=== PATIENT | male | born 1950 | race Caucasian/White ===

== ENCOUNTER 2018-09-06 08:43 | Outpatient (CLI) | payer MEDICARE, SELFPAY ==
[2018-09-06 09:24] LABS: HCT 43.5 % (40.0-50.0); HGB 14.3 g/dL (13.5-17.5); Mean Corp. HGB Concentration 32.9 g/dL (32.0-36.0); Mean Corpuscular Hemoglobin 29.6 pg (27.0-33.0); Mean Corpuscular Volume 90.1 fL (80-95); Mean Platelet Volume 10.1 fL (8.0-11.0); Platelet Count 257 x1000/uL (130-400); RBC 4.83 m/cumm (4.50-6.00); RBC Distribution Width 13.6 % (11.8-14.1); White Blood Cell Count 6.65 k/cumm (4.4-10.8)
[2018-09-06 10:03] LABS: ALT 26 U/L (12-78); AST 22 U/L (15-37); Albumin 3.8 g/dL (3.4-5.0); Alkaline Phosphatase 92 U/L (46-116); Anion Gap 5.7 mmol/L (3-11); BUN 19 mg/dL (7-18); Bilirubin, Total 0.3 mg/dL (0.2-1.0); CO2 30.3 mmol/L (21.0-32.0); CREATININE 0.97 mg/dL (0.70-1.30); Calcium 9.5 mg/dL (8.5-10.1); Chloride 105 mmol/L (98-107); Cholesterol 183 mg/dL (50-200); Glucose 109 mg/dL (70-100); HDL Cholesterol 60 mg/dL (40-60); LDL CHOLESTEROL 103 mg/dL (<100); Potassium 5.4 mmol/L (3.5-5.1); Sodium 141 mmol/L (136-145); Total Protein 7.4 g/dL (6.4-8.2); Triglyceride 75 mg/dL (30-150)
[2018-09-06 11:55] LABS: Hemoglobin A1C 5.9 % (4.5-6.2)
== END 2018-09-06 09:03 ==
PROVIDERS: PCP Nurse Practitioner; Visit Provider Nurse Practitioner
DX: E78.5 Hyperlipidemia, unspecified (principal); R73.01 Impaired fasting glucose; F32.9 Major depressive disorder, single episode, unspecified; F90.9 Attention-deficit hyperactivity disorder, unspecified type; N40.0 Benign prostatic hyperplasia without lower urinary tract symptoms
CPT/HCPCS: 36415; 80053; 80061; 83721; 85027; 83036

== ENCOUNTER 2024-02-17 21:42 | Emergency (ER) | payer MEDICARE, SELFPAY ==
[2024-02-17 21:45] VITALS: BP 196/118; PULSE 105; RESP 18; TEMP 36.2; O2SAT 96
--- NOTE | 2024-02-17 22:32 | W.ED.GENAD ---
Discharge Plan Disposition Patient Disposition: Home Condition: Good Discharge Details Clinical Impression: FB anus/rectum Primary Care Provider: Kimmy Macario ED Provider: Sweetie Carlos Home Meds and New Rx's Prescriptions: Continued dextroamphetamine-amphetamine 30 mg tablet 30 mg PO TID MDD 90mg Qty: 90 0RF dextroamphetamine-amphetamine [Adderall] 30 mg tablet 30 mg PO TID MDD 90mg Qty: 90 0RF dextroamphetamine-amphetamine 30 mg tablet 30 mg PO TID MDD 90mg Qty: 90 0RF acetaminophen 500 mg tablet 1,000 mg PO Q6H PRN ibuprofen 800 mg tablet 800 mg PO TID PRN (Reason: pain) Qty: 180 4RF simvastatin 40 mg tablet See Rx Instructions .ROUTE .COMPLEX Qty: 90 3RF Dose Instruction: TAKE ONE TABLET BY MOUTH ONCE DAILY Rx Instructions: TAKE ONE TABLET BY MOUTH ONCE DAILY estradiol 0.1 mg/24 hr patch semiweekly 1 patch transdermal .2x/week Patient Comments: 01/19/24 visit Rx Instructions: take together with 0.05mg patch for 0.15mg 2x/week total estradiol 0.05 mg/24 hr patch semiweekly 1 patch transdermal .2x/week Patient Comments: 01/19/24 visit at Rx Instructions: take together with 0.1mg patch for 0.15.g x 2 weeks total Discharge Instructions Instructions: Rectal Foreign Body Removal ED Additional Instructions: Look for toys with a larger base. You can take tylenol and ibuprofen over the counter for any soreness. If you have any severe rectal pain or bleeding, bowel incontinence, or inability to have a bowel movement, please followup with your PCP or return to the ED. Referrals: Kimmy Macario, GABE [Primary Care Provider] - [facility] General Mode of arrival: ambulatory. Date/Time Provider Initiated Documentation: 02/17/24 22:04. Limitations to Documentation: no limitations. Information obtained by: patient. HPI Narrative: 73yo MTF transgendered individual presenting for rectal foreign body. Was engaging in consensual sexual activity with their girlfriend, butt plug (plastic, flared base) slipped in to far and go stuck about 20 minutes ago. Pt has tried removing it without success; can grab the edge but it was too slippery. No rectal pain or bleeding. Otherwise in their usual state of health. Related Data Home Medications Medication Instructions Recorded Confirmed acetaminophen 500 mg tablet 1,000 mg PO Q6H PRN 01/23/20 02/17/24 ibuprofen 800 mg tablet 800 mg PO TID PRN pain #180 tabs 07/17/22 02/17/24 simvastatin 40 mg tablet See Rx Instructions .Route 11/18/23 02/17/24 .COMPLEX #90 tabs dextroamphetamine-amphetamine 30 30 mg PO TID #90 tabs 12/15/23 02/17/24 mg tablet dextroamphetamine-amphetamine 30 30 mg PO TID #90 tabs 12/15/23 02/17/24 mg tablet dextroamphetamine-amphetamine 30 30 mg PO TID #90 tabs 12/15/23 02/17/24 mg tablet (Adderall) estradiol 0.05 mg/24 hr semiweekly 1 patch transdermal .2x/week 01/19/24 02/17/24 transdermal patch estradiol 0.1 mg/24 hr semiweekly 1 patch transdermal .2x/week 01/19/24 02/17/24 transdermal patch Previous Rx's Medication Instructions Recorded ibuprofen 800 mg tablet 800 mg PO TID PRN pain #180 tabs 07/17/22 simvastatin 40 mg tablet See Rx Instructions .Route 11/18/23 .COMPLEX #90 tabs dextroamphetamine-amphetamine 30 30 mg PO TID #90 tabs 12/15/23 mg tablet dextroamphetamine-amphetamine 30 30 mg PO TID #90 tabs 12/15/23 mg tablet dextroamphetamine-amphetamine 30 30 mg PO TID #90 tabs 12/15/23 mg tablet (Adderall) Allergies Allergy/AdvReac Type Severity Reaction Status Date / Time Sulfa (Sulfonamide Allergy Unknown Unknown Verified 02/17/24 21:48 Antibiotics) atorvastatin AdvReac Unknown muscle Verified 02/17/24 21:48 cramps Shellfish containing products Allergy Unknown Anaphylaxis Uncoded 02/17/24 21:48 General Stated Complaint: ForeignBody ANYI: 3 Review of Systems Narrative: see HPI Exam Narrative Exam Narrative: General: Alert, well appearing, well nourished, in no acute distress. Head: Normocephalic, atraumatic Neck: Trachea midline, ?Neck supple. Cardiac: ?No cyanosis. Well perfused. Resp: No respiratory distress. Speaking in full sentences.. Abd: ?Soft, non-distended, nontender Rectal: Normal external exam. Good rectal tone. Palpable rectal foreign body consisted with plastic toy. Black plastic object visualized with anoscope. No bleeding. Extremities: ?No deformities.? No peripheral edema. Neurologic: GCS 15. ? Moves all extremities freely against gravity Course Vital Signs Vital signs: Vital Signs Temperature 36.2 C L 02/17/24 21:45 Pulse 105 H 02/17/24 21:45 Respiratory Rate 18 02/17/24 21:45 Blood Pressure 196/118 H 02/17/24 21:45 Pulse Oximetry 96 02/17/24 21:45 Temperature 36.2 C L 02/17/24 21:45 Temperature Source Skin 02/17/24 21:45 Pulse 105 H 02/17/24 21:45 Respiratory Rate 18 02/17/24 21:45 Respiratory Effort Normal 02/17/24 22:29 Respiratory Pattern Normal 02/17/24 22:29 Blood Pressure 196/118 H 02/17/24 21:45 Blood Pressure Position Sitting 02/17/24 21:45 Pulse Oximetry 96 02/17/24 21:45 Oxygen Delivery Method Room Air 02/17/24 21:45 Oxygen Flow Rate 0 02/17/24 21:45 Pain Level 0 02/17/24 22:30 Procedures Foreign Body Removal Time Out Performed: yes Site: rectum Description of foreign body: toy Sedation/Analgesia: none Technique: manual removal and lopez balloon Confirmed by:: direct visualization, patient report and palpation Complications: none Post-procedure exam: awake, alert Neurovascular: no change from pre-procedure Medical Decision Making 73yo MTF transgendered individual presenting for rectal foreign body. Was engaging in consensual sexual activity with their girlfriend, butt plug (plastic, flared base) slipped in to far and go stuck about 20 minutes [employer]. No pain, bleeding, or numbness. Hypertensive and slightly tachycardiac in triage, suspect 2/t situation. Reliable historian. Would not get CT imaging at this time. Rectal exam with good tone, no bleeding. Palpable smooth foreign body unable to removed on initial manual attempt, visualized with anoscope and confirmed black plastic object. Two lopez catheters inserted past object, balloons inflated, and object removed manually with accompanying lopez traction. Plastic butt plug with flared based. Initial removal (and pt attempts) likely unsuccessful as object had rotated internally with base not proximal on my initial exam; ultimately was removed in standard orientation with base first. Tolerated removal well with mild discomfort. Advised toys with wider base in the future. Discharged home; discharge instructions and return precautions were reviewed with patient who verbalized understanding. All questions were answered and they are in full agreement with the plan. Quality:SDOH Health Related Social Needs: Health related social needs risk of homeless PFSH All Active Problems (Updated 02/17/24 @ 22:49 by Sweetie Carlos MD) FB anus/rectum (Acute) Rotator cuff arthropathy of right shoulder (Acute 07/22/23) Ortho [facility] xray 07/22/23. mild to moderate glenohumeral joint osteoarthopathy with concentirc gleniod wear. Mild acromioclavicular osteoarthropathy. Shoulder arthritis (Acute 07/22/23) Ortho Melanoma of back (Acute) [facility] Derm Note 05/07/23 Neoplasm of unspecified behavior of bone, soft tissue, and skin (Acute) 04/07/23 Shave Bx done Gender dysphoria (Acute) 07/29/22 Endocrinology Telangiectasia (Acute) 03/25/22 tip of nose per [facility] derm Leung angioma (Acute) Seborrheic keratoses (Acute) Failure to attend screening for abdominal aortic aneurysm (AAA) (Acute) Depressive disorder (Chronic 09/05/14) [id number] transgender person (Acute) Colonoscopy refused (Acute) Malignant neoplasm of prostate (Chronic) 09/14/19-[facility]. Tiffanie Wood MD per note, pt would like to be referred to [facility] urology to further discuss surgical options. 02/07/21 F/u Urology/Oncology - f/u 6months and PSA Elevated PSA (Acute) 09/14/19-[facility]. MD Celestino Active advance directive (Acute 06/09/16) Brother, Singh Warren has his AD and DPOA [phone] Attention deficit disorder with hyperactivity (Acute 09/05/14) Benign localized prostatic hyperplasia without lower urinary tract symptoms (LUTS) (Acute 09/05/14) Hyperlipidemia (Acute 09/05/14) Medical History (Updated 02/17/24 @ 22:49 by Sweetie Carlos MD) Multiple nevi 12/31/23 F/u with Derm and Skin screening done for Cancer Inflamed seborrheic keratosis Derm - LN x2 to scalp Dermatofibroma left knee per [facility] derm 03/25/22 Urinary frequency Mild cataracts ADHD (attention deficit hyperactivity disorder) Melanoma (~2004) L arm BPH (benign prostatic hyperplasia) Depression Controlled with medication Controlled anxiety Arthralgias/Joint pain Shoulder aches from old rotator cuff injuries Surgical History (Updated 01/27/20 @ 16:37 by Payton Nicholas RN) Hx of bilateral orchiectomies (~01/19/20) M>F transgender History of robot-assisted laparoscopic radical prostatectomy (01/19/20) with peritoneal lymph note dissection Malignant melonoma, left arm Colonoscopy - IV Sedation (08/10/09) No polyps found Biopsy, Soft Tissue (06/06/16) Dr Lau-[facility] Lesion R neck Family History Mother Idiopathic interstitial pneumonia Heart disease COPD (chronic obstructive pulmonary disease) Father Alcoholism Cancer Colon, Bladder & Lung Daughter Depression Other Personal history of malignant neoplasm Social History (Updated 09/27/19 @ 08:39 by Regine Mayer RN, RN) Smoking/Tobacco Use Status: Never Second Hand Exposure: No Smoking risk assessment performed?: Yes Alcohol Intake: current Alcohol Intake frequency: a few times a month Drug use: Never Substance use type: does not use Household members: none Housing: house Number of Children: 1 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
== END 2024-02-17 22:57 | disposition home or self-care (01) ==
PROVIDERS: Emergency Provider Student in an Organized Health Care Education/Training Program; PCP Nurse Practitioner
DX: T18.5XXA Foreign body in anus and rectum, initial encounter (principal); W44.B9XA Other plastic object entering into or through a natural orifice, initial encounter; Y93.89 Activity, other specified; Y92.018 Other place in single-family (private) house as the place of occurrence of the external cause
CPT/HCPCS: 99283